=== PATIENT | female | born 1995 | race Caucasian/White ===

== ENCOUNTER 2022-02-28 19:50 | Emergency (ER) | payer OTHER | END 2022-02-28 22:18 | disposition home or self-care (01) | LOC: ER1 19:50 | DX: S93.402A Sprain of unspecified ligament of left ankle, initial encounter (principal); R00.0 Tachycardia, unspecified; F17.210 Nicotine dependence, cigarettes, uncomplicated; Z90.49 Acquired absence of other specified parts of digestive tract; W01.0XXA Fall on same level from slipping, tripping and stumbling without subsequent striking against object, initial encounter | CPT/HCPCS: 73610; 73630; 99283 ==